=== PATIENT | male | born 1950 | race Two or more races ===

== ENCOUNTER 2019-10-28 15:45 | Inpatient (IN) | payer MEDICAID, MEDICARE ==
[~2019-10-28] VITALS: Ht 170.2 cm; Wt 92.1 kg
--- NOTE | 2019-10-28 16:00 | NUR ---
BIBA RA 860 " Right knee pain/swelling x1wk". On room air, breathing evenly and unlabored. connected to the monitor and pulse ox. kept comfortable, will continue to monitor accordingly.
--- NOTE | 2019-10-28 16:05 | NUR ---
[employer] service [facility] utilized for powder monkey [id number]
[2019-10-28] MEDS ORDERED: VANCOMYCIN 1 GM in IV D5W 250 ML IV ONE (17:00)
[2019-10-28] MEDS ORDERED: PIPERACILLIN /TAZOBACTAM 3.375 G in IV D5W 50 ML IV ONE (17:00)
[2019-10-28 17:20] LABS: BASOPHILS # (AUTO) 0.1 /CMM (0.0-0.2); BASOPHILS % (AUTO) 0.8 % (0.0-2.0); EOSINOPHILS % (AUTO) 2.7 % (0.0-6.0); HEMATOCRIT 45 % (39-51); HEMOGLOBIN 14.7 g/dL (13.5-17.5); LYMPHOCYTES # (AUTO) 1.8 /CMM (0.8-4.8); LYMPHOCYTES % (AUTO) 12.6 % (20.0-44.0); MEAN CORPUSCULAR HGB CONC 33 g/dl (31.0-36.0); MEAN CORPUSCULAR VOLUME 92 fL (80-96); MONOCYTES # (AUTO) 1.7 /CMM (0.1-1.30); MONOCYTES % (AUTO) 11.7 % (2.0-12.0); NEUTROPHILS # (AUTO) 10.5 /CMM (1.8-8.9); NEUTROPHILS % (AUTO) 72.2 % (43.0-81.0); PLATELET COUNT (AUTO) 337 /CMM (150-450); RED BLOOD CELL COUNT(AUTO) 4.85 MIL/uL (4.5-6.0); WHITE BLOOD COUNT (AUTO) 14.5 K/uL (4.3-11.0)
[2019-10-28 17:38] LABS: ALBUMIN 3.5 g/dL (3.4-5.0); BILIRUBIN,DIRECT 0.2 mg/dL (0.0-0.2); BILIRUBIN,TOTAL 0.7 mg/dL (0.2-1.0); CALCIUM, SERUM 11.3 mg/dL (8.5-10.1); CREATININE 1.2 mg/dL (0.6-1.3); POTASSIUM 3.5 mmol/L (3.5-5.1); TOTAL PROTEIN, SERUM 7.7 g/dL (6.4-8.2)
[2019-10-28 17:52] LABS: C-REACTIVE PROTEIN 19.7 mg/dL (0.0-0.9)
--- NOTE | 2019-10-28 18:00 | NUR ---
CARVING MACHINE OPERATOR/MED RECON UNABLE TO UPDATE HOME MEDICATION INFO AT THIS TIME. PATIENT UNABLE TO PROVIDE ANY INFO RE: MEDICATION. COMMUNICATED WITH PATIENT VIA PHOTOGRAPHIC MACHINE OPERATOR SERVICE [employer] FOR [facility], PHOTOGRAPHIC MACHINE OPERATOR RUFINA #[id number]. CALLED [facility] PER PATIENT REQUEST. SPOKE [facility] STATED "NO REGULAR PRESCRIPTION NOTED IN PATIENT PROFILE, AND THE LAST TIME WE DISPENSED WAS BACK IN FEBRUARY 2019 AND IT WAS L[facility] REGIMENT". PCP-DR. LAW [phone], OFFICE IS CLOSED ON WEEKENDS.
--- NOTE | 2019-10-28 19:31 | NUR ---
PT SEEN AND REASSESSED. NO MEDICAL COMPLAINTS AT THIS TIME. NO ACUTE DISTRESS NOTED.
--- NOTE | 2019-10-28 19:31 | NUR ---
REPORT RECEIVED FROM CHRISTINE BARKER
--- NOTE | 2019-10-28 19:42 | NUR ---
BED ASSIGNMENT 204-1
--- NOTE | 2019-10-28 19:58 | NUR ---
REPORT GIVEN TO CHRISTINE CHAVEZ
--- NOTE | 2019-10-28 20:06 | NUR ---
PT TRANSFERRED TO ROOM IN STABLE CONDITION
[2019-10-28 20:28] VITALS: BP 104/65
[2019-10-28 20:39] VITALS: BP 104/65
[2019-10-28] MEDS ORDERED: ENOXAPARIN SODIUM 80 MG/0.8 ML DISP.SYRIN SQ SCH (22:00)
[2019-10-28] MEDS: PANTOPRAZOLE 40 MG TABLET.DR PO SCH (22:35)
[2019-10-28 22:50] LABS: MAGNESIUM 1.8 mg/dL (1.8-2.4); THYROID STIMULATING HORMONE 1.611 uIU/mL (0.358-3.74)
[2019-10-28] MEDS: IPRATROPIUM NEB FS 0.5 MG/2.5 ML AMPUL.NEB NEB SCH (23:57)
[2019-10-28] MEDS: ALBUTEROL FS 2.5 MG/3 ML VIAL.NEB NEB SCH (23:57)
[2019-10-29] MEDS ORDERED: PIPERACILLIN /TAZOBACTAM 3.375 G VIAL IV ONE (00:38)
[2019-10-29] MEDS ORDERED: VANCOMYCIN 1 GM VIAL ONE (00:41)
[2019-10-29] MEDS ORDERED: PIPERACILLIN /TAZOBACTAM 3.375 G in IV D5W 50 ML IV ONE (01:00)
--- NOTE | 2019-10-29 04:41 | NUR ---
ENDING NOTES: ALERT AND ORIENTATED X4 DEAF AND MUTE, PAPER AND PEN GIVEN TO ALLOW HIM TO COMMUNICATE WITH THE STAFF AND THIS WORKED OUT EFFECTIVELY FOR COMMUNICATION PURPOSES. HE AMBULATES TO THE BATHROOM WITH MINIMAL ASSIST USING HIS OWN WALKER 2 - WHEEL WALKER FROM HOME. NO C/O OF PAIN THIS 12 HOURS UNLESS THE LEG WAS TOUCHED OR MOVED TOO FAST. RIGHT KNEE DEEP PINK IN COLOR.
[2019-10-29] MEDS ORDERED: VANCOMYCIN 1.5 GM in IV D5W 500 ML IV ONE (05:00)
[2019-10-29] MEDS: ACETAMINOPHEN ES 500 MG TABLET PO PRN ×2 (05:22→22:02)
[2019-10-29] MEDS ORDERED: FEE PK DOSING 1 MIN EA MC ONE (06:47)
--- NOTE | 2019-10-29 07:26 | NUR ---
MS RN OPENING NOTE PATIENT IN BED RESTING COMFORTABLY. PATIENT IN NO ACUTE DISTRESS. NO SOB NOTED. PATIENT BREATHING IS EVEN AND UNLABORED. PATIENT IS DEAF AND MUTE, ABLE TO COMMUNICATE WITH WRITTEN COMMUNICATION AND IS ALERT AND ORIENTED X4. PATIENT WALKER AT THE BEDSIDE. PATIENT SAFETY PRECAUTIONS IN PLACE. PATIENT BED IS LOCKED AND IN LOWEST POSITION. CALL LIGHT WITHIN REACH. WILL CONTINUE TO MONITOR.
[2019-10-29] MEDS: ALBUTEROL FS 2.5 MG/3 ML VIAL.NEB NEB SCH ×3 (08:09→23:07)
[2019-10-29] MEDS: PANTOPRAZOLE 40 MG TABLET.DR PO SCH (08:28)
[2019-10-29 08:43] VITALS: BP 108/71
[2019-10-29] MEDS ORDERED: ENOXAPARIN SODIUM 40 MG/0.4 ML DISP.SYRIN SQ SCH (09:50)
--- NOTE | 2019-10-29 09:58 | NUR ---
MS RN NOTE DR. LAW SEEN AND EVALUATED PATIENT. ORDER FOR LOVENOX TO BE CHANGED TO 40 MG PER MD, PHARMACY AWARE. PER DR. LAW OKAY TO ORDER SCDS FOR PATIENT. WILL CONTINUE TO MONITOR.
--- NOTE | 2019-10-29 10:16 | NUR ---
MS RN NOTE PER DR. LAW ORDER FOR D5NS RUNNING AT 80ML/HR AND ADMINISTER UNTIL CALCIUM LEVELS ARE WNL. MD ALSO ORDERED AND CHANGE FOR LOVENOX TO 100 MG AND SPOKE WITH BROWN FROM PHARMACY TO CONFIRM. PER MD CHANGE DOSING ONCE VENOUS DOCTOR ARRIVES AND CLEARS PATIENT FOR DVT AND DOSING TO BE LOVENOX 80MG ONCE CLEARED.
[2019-10-29] MEDS ORDERED: IV D5/ 0.9% NACL 1,000 ML IV PRN (10:30)
[2019-10-29] MEDS: ENOXAPARIN SODIUM 100 MG/ML DISP.SYRIN SQ SCH ×2 (11:04→22:02)
[2019-10-29 11:21] LABS: BASOPHILS # (AUTO) 0.1 /CMM (0.0-0.2); BASOPHILS % (AUTO) 0.5 % (0.0-2.0); EOSINOPHILS % (AUTO) 5.6 % (0.0-6.0); HEMATOCRIT 38 % (39-51); HEMOGLOBIN 12.6 g/dL (13.5-17.5); LYMPHOCYTES # (AUTO) 2.1 /CMM (0.8-4.8); LYMPHOCYTES % (AUTO) 16.5 % (20.0-44.0); MEAN CORPUSCULAR HGB CONC 33 g/dl (31.0-36.0); MEAN CORPUSCULAR VOLUME 91 fL (80-96); MONOCYTES # (AUTO) 1.8 /CMM (0.1-1.30); MONOCYTES % (AUTO) 14.3 % (2.0-12.0); NEUTROPHILS # (AUTO) 8.1 /CMM (1.8-8.9); NEUTROPHILS % (AUTO) 63.1 % (43.0-81.0); PLATELET COUNT (AUTO) 337 /CMM (150-450); RED BLOOD CELL COUNT(AUTO) 4.15 MIL/uL (4.5-6.0); WHITE BLOOD COUNT (AUTO) 12.8 K/uL (4.3-11.0)
[2019-10-29 11:34] LABS: CREATININE 1.3 mg/dL (0.6-1.3)
[2019-10-29 11:36] LABS: IRON, SERUM 25 ug/dl (50-175); TOTAL IRON BINDING CAPACITY 253 ug/dl (250-450)
[2019-10-29 12:10] LABS: POTASSIUM 2.8 mmol/L (3.5-5.1)
[2019-10-29] MEDS: PIPERACILLIN /TAZOBACTAM 3.375 G in IV D5W 50 ML IV SCH ×2 (12:27→17:13)
[2019-10-29] MEDS: IPRATROPIUM NEB FS 0.5 MG/2.5 ML AMPUL.NEB NEB SCH ×2 (12:34→23:07)
--- NOTE | 2019-10-29 12:50 | NUR ---
MS RN NOTE INFORMED DR. LAW OF POTASSIUM 2.8. PER MD ORDER FOR 40 MEQS POTASSIUM BY TABLETS, THEN REPEAT AND GIVE SAME DOSE OF 40 MEQS POTASSIUM IN TWO HOURS AFTER FIRST DOSE. DR. LAW ALSO NOTED OF MAGNESIUM 1.8 YESTERDAY. PER MD ORDER FOR 2 GMS MAGNESIUM GIVEN TODAY AND 2 GMS MAGNESIUM TO BE GIVEN TOMORROW.
[2019-10-29] MEDS ORDERED: POTASSIUM CHLORIDE 20 MEQ TAB.PRT.SR PO ONE ×2 (13:00→15:00)
[2019-10-29] MEDS ORDERED: Magnesium 1GM/D5W 100ML PREMIX PIGGYBACK IV ONE (13:00)
[2019-10-29] MEDS: Magnesium 1GM/D5W 100ML PREMIX 100 ML IV SCH ×2 (13:43→15:16)
[2019-10-29 16:04] VITALS: BP 112/68
--- NOTE | 2019-10-29 16:07 | NUR ---
MS RN NOTE INFORMED AND MADE AWARE TO DR. LAW THAT CALCIUM TODAY IS 9.0 AND IS WITHIN NORMAL RANGE OF THE HOSPITAL. PER MD ORDER TO STOP IV FLUIDS. ALSO MADE AWARE TO MD THAT DR. ZAYAS MEDICAL OFFICES CLOSED. PER DR. LAW TRY TO CALL AGAIN AND LEAVE MESSAGE IF NEEDED. DR. LAW STATED HE LEFT MESSAGE FOR CONSULT WELL. WHEN CALLING MEDICAL OFFICES OF DR. ZAYAS, WAS TRANSFERRED TO THE TEST DEVELOPER DOCTOR. I SPOKE WITH DR. PALM AND GAVE REPORT FOR CONSULT. PER DR. PALM WILL COME SEE PATIENT TOMORROW MORNING.
--- NOTE | 2019-10-29 18:25 | NUR ---
MS RN CLOSING NOTE PATIENT IN BED RESTING COMFORTABLY. PATIENT IN NO ACUTE DISTRESS. NO SOB NOTED. PATIENT BREATHING IS EVEN AND UNLABORED. PATIENT IS DEAF AND MUTE, ABLE TO COMMUNICATE WITH WRITTEN COMMUNICATION AND IS ALERT AND ORIENTED X4. PATIENT WALKER AT THE BEDSIDE. PATIENT KEPT CLEAN, DRY, AND COMFORTABLE THROUGHOUT SHIFT. PATIENT SAFETY PRECAUTIONS IN PLACE. PATIENT BED IS LOCKED AND IN LOWEST POSITION. CALL LIGHT WITHIN REACH. WILL ENDORSE CARE TO PM SHIFT FOR SUMIT.
--- NOTE | 2019-10-29 19:50 | NUR ---
MS RN OPENING NOTES RECEIVED PATIENT FROM MORNING SHIFT, ALERT AND ORIENTED X 3. COMMUNICATES THROUGH HAND LANGUAGE AND WRITTEN MESSAGES; ABLE TO FOLLOW DIRECTIONS. BREATHING REGULAR AND UNLABORED ON ROOM AIR. LEFT AC G18 IV LINE INTACT AND PATENT, FLUSHING WELL WITH NO BLEEDING OR S/S OF INFILTRATION NOTED. DENIES SUICIDAL IDEATION OR PAIN/DISCOMFORT AT THIS TIME. BED LOW AND LOCKED ON SEMI FOWLERS POSITION. CALL LIGHT IN REACH. WILL CONTINUE TO MONITOR.
[2019-10-29 20:00] VITALS: BP 99/63
[2019-10-29 20:06] VITALS: BP 99/63
[2019-10-29] MEDS: VANCOMYCIN 1.25 GM in IV D5W 250 ML IV SCH (22:23)
--- NOTE | 2019-10-29 23:45 | NUR ---
MS RN NOTES IV LINE LEAKING, REINSERTED ON LEFT FOREARM G22 WITH GOOD BLOOD BACK FLOW FLUSHING WELL.
[2019-10-30] MEDS: PIPERACILLIN /TAZOBACTAM 3.375 G in IV D5W 50 ML IV SCH ×5 (00:32→23:42)
[2019-10-30] MEDS: ACETAMINOPHEN ES 500 MG TABLET PO PRN (06:00)
--- NOTE | 2019-10-30 06:35 | NUR ---
MS RN CLOSING NOTES PATIENT IN BED, ALERT AND ORIENTED X 3. AFEBRILE WITH NO S/S OF DISTRESS OBSERVED. LEFT FOREARM G22 IV LINE PATENT AND FLUSHING WELL. COMPLAINED OF 3/10 RIGHT KNEE TO RIGHT ANKLE PAIN, TYLENOL 500MG GIVEN BY MOUTH. NON-PHARMACOLOGICAL INTERVENTIONS PROVIDED. KILN CAR UNLOADER MARGIE NOTIFIED. BED LOW AND LOCKED ON SEMI FOWLERS POSITION. CALL LIGHT IN REACH. WILL ENDORSE TO MORNING SHIFT FOR SUMIT.
--- NOTE | 2019-10-30 07:34 | NUR ---
MS RN NOTES PATIENT IN BED RESTING NO SOB OR ACUTE DISTRESS NOTED. PATIENT ALERT, ORIENTED X 3. BED IN LOW LOCKED POSITION. SAFETY MEASURES IN PLACE. CALL LIGHT WITHIN REACH. WILL CONTINUE TO MONITOR.
[2019-10-30 07:39] LABS: BASOPHILS # (AUTO) 0.1 /CMM (0.0-0.2); EOSINOPHILS % (AUTO) 6.3 % (0.0-6.0); HEMATOCRIT 38 % (39-51); HEMOGLOBIN 12.8 g/dL (13.5-17.5); LYMPHOCYTES # (AUTO) 2.1 /CMM (0.8-4.8); LYMPHOCYTES % (AUTO) 18.1 % (20.0-44.0); MEAN CORPUSCULAR HGB CONC 34 g/dl (31.0-36.0); MEAN CORPUSCULAR VOLUME 91 fL (80-96); MONOCYTES # (AUTO) 1.3 /CMM (0.1-1.30); MONOCYTES % (AUTO) 11.2 % (2.0-12.0); NEUTROPHILS # (AUTO) 7.2 /CMM (1.8-8.9); NEUTROPHILS % (AUTO) 63.4 % (43.0-81.0); PLATELET COUNT (AUTO) 318 /CMM (150-450); RED BLOOD CELL COUNT(AUTO) 4.16 MIL/uL (4.5-6.0); WHITE BLOOD COUNT (AUTO) 11.3 K/uL (4.3-11.0)
[2019-10-30 07:58] LABS: ALANINE AMINOTRANSFERASE 26 U/L (12-78); ALBUMIN 2.9 g/dL (3.4-5.0); ALKALINE PHOSPHATASE 45 U/L (46-116); ASPARTATE AMINOTRANSFERASE 20 U/L (15-37); BILIRUBIN,TOTAL 0.5 mg/dL (0.2-1.0); CALCIUM, SERUM 8.4 mg/dL (8.5-10.1); CARBON DIOXIDE 27 mmol/L (21-32); CHLORIDE 102 mmol/L (98-107); CREATININE 1.4 mg/dL (0.6-1.3); GLUCOSE 104 mg/dL (74-106); POTASSIUM 3.3 mmol/L (3.5-5.1); SODIUM SERUM 138 mmol/L (136-145); TOTAL PROTEIN, SERUM 6.6 g/dL (6.4-8.2); UREA NITROGEN, BLOOD 18 mg/dL (7-18)
[2019-10-30] MEDS: IPRATROPIUM NEB FS 0.5 MG/2.5 ML AMPUL.NEB NEB SCH ×3 (08:23→23:31)
[2019-10-30] MEDS: ALBUTEROL FS 2.5 MG/3 ML VIAL.NEB NEB SCH ×3 (08:23→23:31)
[2019-10-30 08:42] VITALS: BP 128/79
[2019-10-30] MEDS ORDERED: ENOXAPARIN SODIUM 40 MG/0.4 ML DISP.SYRIN SQ SCH (09:00)
[2019-10-30] MEDS: PANTOPRAZOLE 40 MG TABLET.DR PO SCH (09:49)
--- NOTE | 2019-10-30 09:52 | NUR ---
MS RN NOTES PATIENT WAS SEEN BY DR. LONG, CONSULTED ORTHO. SURGEON. INFORMED DR. OH THAT PATIENT PAIN MEDICATION IS NOT EFFECTIVE, NO NEW ORDERS GIVEN. ALSO ORDERS GIVEN TO CHANGE LOVENOX TO 80MG. ALL ORDERS NOTED AND CARRIED OUT.
[2019-10-30] MEDS ORDERED: ENOXAPARIN SODIUM 100 MG/ML DISP.SYRIN SQ SCH (10:30)
[2019-10-30] MEDS ORDERED: ENOXAPARIN SODIUM 80 MG/0.8 ML DISP.SYRIN SQ SCH (10:30)
--- NOTE | 2019-10-30 11:23 | NUR ---
Social Service consult requested by MD pt lives alone and possible lack of resources. Per MD notes, pt is a 69-year-old male, patient is self-referred. Patient has been having right knee pain and swelling for 1 week. No history of trauma. No fever or chills. No cough or shortness of breath. No vomiting or diarrhea. PASCUAL and CHRISTINE Parrish met with the pt bedside. Pt is deaf. BUS WASHER communicated with the pt through [employer] language interpretation services, clay puddler ID#[id number]. BUS WASHER introduced self, and purpose of the visit. Pt is alert and oriented x 3. Pt appears confused at times and not able to recollect his address or personal information. Per pt, he resides at [facility] located at [address], however [facility] is located at [address]. Pt states, he left his pet with is neighbor Av Pruett but does not have Art's contact number. Pt had a few [facility] navigator business cards. BUS WASHER attempted to call the numbers on the card, however some are not working, SW is not able to leave any contact information. BUS WASHER left a voicemail at [facility] requesting a call back. Pt reports, he has been residing there since January 2007 but is not sure. BUS WASHER to continue to f/u in finding contact information for the pt.
[2019-10-30] MEDS ORDERED: POTASSIUM CHLORIDE 20 MEQ TAB.PRT.SR PO SCH (12:00)
--- NOTE | 2019-10-30 12:00 | NUR ---
MS RN NOTES MRI QUESTIONER COMPLETED WITH STUDY MANAGER [employer]IA [employer]. FORM SIGNED BY PATIENT ALL QUESTIONS ANSWERED.
[2019-10-30] MEDS ORDERED: Magnesium 1GM/D5W 100ML PREMIX PIGGYBACK IV ONE (13:00)
[2019-10-30] MEDS: SOD FERRIC GLUC 125 MG in IV NS 0.9% 100 ML IV SCH (14:36)
[2019-10-30] MEDS: Magnesium 1GM/D5W 100ML PREMIX 100 ML IV SCH ×2 (15:00→16:09)
[2019-10-30 16:48] VITALS: BP 119/74
--- NOTE | 2019-10-30 17:30 | NUR ---
MS RN NOTES CALL RECEIVED FROM CASE MANAGEMENT REQUESTING COVID TEST FOR PATIENT FOR PLACEMENT PURPOSES. NOTED AND CARRIED OUT.
[2019-10-30] MEDS: VANCOMYCIN 1.25 GM in IV D5W 250 ML IV SCH (17:39)
--- NOTE | 2019-10-30 18:54 | NUR ---
MS RN NOTES PATIENT IN BED RESTING NO SOB OR ACUTE DISTRESS NOTED. ALL DUE MEDICATIONS ADMINISTERED. ALL NEEDS MET. NO ACUTE CHANGES NOTED DURING SHIFT. WILL ENDORSE CARE TO PM SHIFT.
--- NOTE | 2019-10-30 19:35 | NUR ---
MS RN OPENING NOTES RECEIVED PATIENT FROM MORNING SHIFT, ALERT AND ORIENTED X 3. COMMUNICATES THROUGH HAND LANGUAGE AND WRITTEN MESSAGES; ABLE TO FOLLOW DIRECTIONS. BREATHING REGULAR AND UNLABORED ON ROOM AIR. LEFT FOREARM G22 IV LINE INTACT AND PATENT, FLUSHING WELL WITH NO BLEEDING OR S/S OF INFILTRATION NOTED. DENIES SUICIDAL IDEATION OR PAIN/DISCOMFORT AT THIS TIME. BED LOW AND LOCKED ON SEMI FOWLERS POSITION. CALL LIGHT IN REACH. WILL CONTINUE TO MONITOR.
[2019-10-30 20:00] VITALS: BP_SYST 130; BP_SYST 138; BP_DIAS 91; BP_DIAS 97
--- NOTE | 2019-10-30 22:45 | NUR ---
MS RN NOTES PICKED-UP FOR MRI VIA WHEELCHAIR.
[2019-10-31] MEDS: PIPERACILLIN /TAZOBACTAM 3.375 G in IV D5W 50 ML IV SCH ×4 (05:20→23:51)
--- NOTE | 2019-10-31 06:35 | NUR ---
MS RN CLOSING NOTES PATIENT IN BED, ALERT AND ORIENTED X 3. AFEBRILE WITH NO S/S OF DISTRESS OBSERVED. LEFT FOREARM G22 IV LINE PATENT AND FLUSHING WELL. DENIES ANY PAIN/DISCOMFORT AT THIS TIME. BED LOW AND LOCKED ON SEMI FOWLERS POSITION. CALL LIGHT IN REACH. WILL ENDORSE TO MORNING SHIFT FOR SUMIT.
[2019-10-31 07:00] LABS: BASOPHILS # (AUTO) 0.1 /CMM (0.0-0.2); BASOPHILS % (AUTO) 0.9 % (0.0-2.0); EOSINOPHILS % (AUTO) 6.2 % (0.0-6.0); HEMATOCRIT 42 % (39-51); LYMPHOCYTES # (AUTO) 1.9 /CMM (0.8-4.8); LYMPHOCYTES % (AUTO) 16.6 % (20.0-44.0); MEAN CORPUSCULAR HGB CONC 34 g/dl (31.0-36.0); MEAN CORPUSCULAR VOLUME 91 fL (80-96); MONOCYTES % (AUTO) 8.9 % (2.0-12.0); NEUTROPHILS # (AUTO) 7.9 /CMM (1.8-8.9); NEUTROPHILS % (AUTO) 67.4 % (43.0-81.0); PLATELET COUNT (AUTO) 383 /CMM (150-450); RED BLOOD CELL COUNT(AUTO) 4.56 MIL/uL (4.5-6.0); WHITE BLOOD COUNT (AUTO) 11.7 K/uL (4.3-11.0)
[2019-10-31 07:16] LABS: APPEARANCE,URINE CLEAR (CLEAR); BILIRUBIN,URINE NEGATIVE (NEGATIVE); BLOOD, URINE NEGATIVE Ery/uL (NEGATIVE); KETONES,URINE NEGATIVE (NEGATIVE); LEUKOCYTE ESTERASE ,URINE NEGATIVE (NEGATIVE); NITRITE, URINE NEGATIVE (NEGATIVE); PROTEIN,URINE NEGATIVE (NEGATIVE); UGLUCOSE NEGATIVE (NEGATIVE); UROBILINOGEN,URINE 0.2 EU/dL (0.2)
[2019-10-31 07:17] LABS: CREATININE, URINE 33.7 MG/DL (30.0-125.0); URINE TOTAL PROTEIN 8.4 mg/dL (0-11.9)
[2019-10-31 07:20] LABS: COLOR,URINE STRAW (YELLOW)
[2019-10-31 07:32] LABS: ALBUMIN 3.3 g/dL (3.4-5.0); BILIRUBIN,TOTAL 0.4 mg/dL (0.2-1.0); CALCIUM, SERUM 9.1 mg/dL (8.5-10.1); CREATININE 1.3 mg/dL (0.6-1.3); MAGNESIUM 2.4 mg/dL (1.8-2.4); PHOSPHORUS 2.6 mg/dL (2.5-4.9); POTASSIUM 3.9 mmol/L (3.5-5.1); TOTAL PROTEIN, SERUM 7.6 g/dL (6.4-8.2)
[2019-10-31 08:00] VITALS: BP 133/88
[2019-10-31] MEDS: ALBUTEROL FS 2.5 MG/3 ML VIAL.NEB NEB SCH ×2 (08:15→14:56)
[2019-10-31] MEDS: IPRATROPIUM NEB FS 0.5 MG/2.5 ML AMPUL.NEB NEB SCH ×2 (08:15→14:56)
[2019-10-31] MEDS: PANTOPRAZOLE 40 MG TABLET.DR PO SCH (09:28)
[2019-10-31] MEDS: ENOXAPARIN SODIUM 40 MG/0.4 ML DISP.SYRIN SQ SCH (09:29)
[2019-10-31] MEDS: VANCOMYCIN 1.25 GM in IV D5W 250 ML IV SCH (11:47)
[2019-10-31 13:08] LABS: EOSINOPHIL,URINE None Seen
[2019-10-31] MEDS: SOD FERRIC GLUC 125 MG in IV NS 0.9% 100 ML IV SCH (15:40)
[2019-10-31] MEDS ORDERED: LORATADINE 10 MG TABLET PO ONE (17:00)
--- NOTE | 2019-10-31 18:36 | NUR ---
MS RN NOTES PATIENT IN BED RESTING NO SOB OR ACUTE DISTRESS NOTED. NO ACUTE CHANGES NOTED. ALL DUE MEDICATIONS ADMINISTERED. ALL NEEDS MET. WILL ENDORSE CARE TO PM SHIFT.
--- NOTE | 2019-10-31 19:05 | NUR ---
RN OPENING NOTES Received patient asleep on bed. Communication through writing. On RA, no SOB/respiratory distress noted at this time. Patient denies any pain at this time. Kept on bed clean, dry and comfortable. On fall and aspiration precautions. Will continue to monitor accordingly.
[2019-10-31 20:00] VITALS: BP 103/77
[2019-10-31] MEDS: ACETAMINOPHEN ES 500 MG TABLET PO PRN (21:30)
[2019-10-31 22:50] VITALS: BP 103/77
[2019-11-01] MEDS: IPRATROPIUM NEB FS 0.5 MG/2.5 ML AMPUL.NEB NEB SCH ×4 (00:22→23:20)
[2019-11-01] MEDS: ALBUTEROL FS 2.5 MG/3 ML VIAL.NEB NEB SCH ×4 (00:22→23:20)
[2019-11-01] MEDS: VANCOMYCIN 1.25 GM in IV D5W 250 ML IV SCH ×2 (04:08→22:48)
[2019-11-01] MEDS: PIPERACILLIN /TAZOBACTAM 3.375 G in IV D5W 50 ML IV SCH ×4 (05:03→23:41)
--- NOTE | 2019-11-01 06:54 | NUR ---
RN CLOSING NOTES Patient asleep, easily awaken. No new complaints made. All nursing needs attended. Due meds given as ordered. Kept on bed clean, dry and comfortable. On fall and aspiration precautions. Endorsed.
[2019-11-01 07:44] LABS: CALCIUM, SERUM 8.8 mg/dL (8.5-10.1); CREATININE 1.2 mg/dL (0.6-1.3); POTASSIUM 4.1 mmol/L (3.5-5.1)
[2019-11-01 08:00] VITALS: BP 131/81
--- NOTE | 2019-11-01 08:00 | NUR ---
MS RN OPENING NOTES Received Patient resting in bed. A/O x 3. VS stable with no acute distress. Breathing even and unlabored on room air with no respiratory distress. Denies pain. No signs and symptoms of pain. 20g PIV on LFA clean, intact, patent and flushing well. Safety precautions in place. Bed locked and set to lowest position with side rails x 2 up. All needs rendered at this time. Call light within reach. Will continue to monitor.
[2019-11-01] MEDS: PANTOPRAZOLE 40 MG TABLET.DR PO SCH (08:54)
[2019-11-01] MEDS: ENOXAPARIN SODIUM 40 MG/0.4 ML DISP.SYRIN SQ SCH (08:55)
--- NOTE | 2019-11-01 09:30 | NUR ---
MS RN NOTES Per Leny BAIG, verbally ordered CBC, CMP, and ESR for 11/02/19 AM. Orders read back, noted and carried out. Patient in stable condition. Will continue to monitor.
[2019-11-01] MEDS ORDERED: LIDOCAINE 2% 20 ML MDV IJ STA (11:09)
--- NOTE | 2019-11-01 11:40 | NUR ---
MS RN NOTES Obtained consent for "Left Knee Aspiration" at this time. Explained risks and benefits of procedure. Patient agreed. Consent placed in chart. Patient in stable condition. Will continue to monitor.
--- NOTE | 2019-11-01 11:50 | NUR ---
MS RN NOTES Per Sundar BAIG, ordered Anaerobic Gram Stain, Culture Sensitivity, Uric Acid Crystals, and Cell Count for aspirate fluid from Right Knee. Reviewed orders with Yomaira REHMAN. Orders noted and carried out. Patient in stable condition. Will continue to monitor.
[2019-11-01 12:06] LABS: *SPE A/G RATIO 0.9 (0.7-1.7); *SPE ALBUMIN 3.1 g/dL (2.9-4.4); *SPE ALPHA-1-GLOBULIN 0.4 g/dL (0.0-0.4); *SPE ALPHA-2-GLOBULIN 1.1 g/dL (0.4-1.0); *SPE BETA GLOBULIN 1.4 g/dL (0.7-1.3); *SPE GLOBULIN, TOTAL 3.6 g/dL (2.2-3.9); *SPE M-SPIKE Not Observed g/dL (Not Observed); *SPEGAMMA GLOBULIN 0.7 g/dL (0.4-1.8)
[2019-11-01] MEDS: SOD FERRIC GLUC 125 MG in IV NS 0.9% 100 ML IV SCH (14:11)
--- NOTE | 2019-11-01 19:19 | NUR ---
MS RN CLOSING NOTES Patient resting in bed. A/O x 3. VS stable with no acute distress. Breathing even and unlabored on room air with no respiratory distress. Denies pain. No signs and symptoms of pain. 20g PIV on LFA clean, intact, patent and flushing well. Safety precautions in place. Bed locked and set to lowest position with side rails x 2 up. All needs rendered at this time. Call light within reach. Will endorse plan of care to oncoming shift.
--- NOTE | 2019-11-01 19:25 | NUR ---
RN OPENING NOTES Received patient awake, resting on bed. No complaints made at this time. Patient able to manage self independently. Call light within easy reach. Communication through writing provided, pt easily understood and be understand by the HCPs. Will continue to monitor accordingly.
[2019-11-01] MEDS: ACETAMINOPHEN ES 500 MG TABLET PO PRN (19:56)
[2019-11-01 20:00] VITALS: BP 130/85
[2019-11-01 20:50] VITALS: BP 130/85
--- NOTE | 2019-11-02 01:45 | NUR ---
RN NOTES 2875 - Received a call from labs that specimen of R knee aspiration needed to be logged in before it can be run. Attended need accordingly. 0130 - Changed lab order to BODY FLUID Analysis per laboratory. Awaiting for result at this time.
[2019-11-02] MEDS: PIPERACILLIN /TAZOBACTAM 3.375 G in IV D5W 50 ML IV SCH ×4 (06:11→23:07)
--- NOTE | 2019-11-02 06:26 | NUR ---
RN CLOSING NOTES Patient asleep, easily awaken. Deaf/mute, communication through writing, no difficulty with communication noted. All nursing needs attended. Due meds given as ordered. Pt noted ambulatory with FWW and self-care provided independently. No new unusualities noted. Still with swelling on R knee, S/P synovial fluid aspiration, wrapped with bandage, intact, clean and dry. Kept on bed clean, dry and comfortable. On fall precautions. Call light within easy reach. Endorsed.
[2019-11-02 06:58] LABS: ALBUMIN 3.2 g/dL (3.4-5.0); BILIRUBIN,TOTAL 0.3 mg/dL (0.2-1.0); CREATININE 1.2 mg/dL (0.6-1.3); TOTAL PROTEIN, SERUM 7.1 g/dL (6.4-8.2)
[2019-11-02 07:01] LABS: BASOPHILS # (AUTO) 0.1 /CMM (0.0-0.2); BASOPHILS % (AUTO) 1.1 % (0.0-2.0); EOSINOPHILS % (AUTO) 6.3 % (0.0-6.0); HEMATOCRIT 41 % (39-51); HEMOGLOBIN 13.4 g/dL (13.5-17.5); LYMPHOCYTES % (AUTO) 15.9 % (20.0-44.0); MEAN CORPUSCULAR HGB CONC 33 g/dl (31.0-36.0); MEAN CORPUSCULAR VOLUME 92 fL (80-96); MONOCYTES # (AUTO) 1.2 /CMM (0.1-1.30); MONOCYTES % (AUTO) 9.7 % (2.0-12.0); NEUTROPHILS # (AUTO) 8.4 /CMM (1.8-8.9); PLATELET COUNT (AUTO) 390 /CMM (150-450); RED BLOOD CELL COUNT(AUTO) 4.42 MIL/uL (4.5-6.0); WHITE BLOOD COUNT (AUTO) 12.6 K/uL (4.3-11.0)
--- NOTE | 2019-11-02 07:15 | NUR ---
MS RN NOTES RECEIVED PATIENT IN BED, ALERT AND ORIENTED X4. PATIENT NON-VERBAL. ABLE TO COMMUNICATE AND MAKE NEEDS KNOWN THROUGH WRITTEN COMMUNICATION AND BODY GESTURES. RT KNEE WITH SWELLING NOTED, ELEVATED. LEFT FA #20 SL INTACT AND PATENT. BED IN LOWEST POSITION, LOCKED. BED ALARM ON. CALL LIGHT WITHIN REACH.
[2019-11-02] MEDS: ALBUTEROL FS 2.5 MG/3 ML VIAL.NEB NEB SCH ×3 (07:19→23:14)
[2019-11-02] MEDS: IPRATROPIUM NEB FS 0.5 MG/2.5 ML AMPUL.NEB NEB SCH ×3 (07:19→23:14)
[2019-11-02 07:47] VITALS: BP 124/82
[2019-11-02] MEDS: ACETAMINOPHEN ES 500 MG TABLET PO PRN (07:47)
[2019-11-02] MEDS: PANTOPRAZOLE 40 MG TABLET.DR PO SCH (08:02)
[2019-11-02] MEDS: ENOXAPARIN SODIUM 40 MG/0.4 ML DISP.SYRIN SQ SCH (08:03)
--- NOTE | 2019-11-02 08:21 | NUR ---
MS RN NOTES PATIENT SEEN AND EXAMINED BY DR. OH.
--- NOTE | 2019-11-02 09:31 | NUR ---
Social Service consult was requested by due to unresolving the problems that were mentioned on the consult such as housing, money and home care issues, may need SNF. JUANITO followed up with case management during the morning meeting and was informed that the pt will be discharged to [facility] today.
[2019-11-02] MEDS: SOD FERRIC GLUC 125 MG in IV NS 0.9% 100 ML IV SCH (14:40)
[2019-11-02] MEDS: MENTHOL/CETYLPYRD (CEPACOL) 1 LOZ LOZENGE PO PRN ×3 (15:00→23:56)
[2019-11-02 16:00] VITALS: BP 112/67
[2019-11-02] MEDS: VANCOMYCIN 1.25 GM in IV D5W 250 ML IV SCH (17:50)
--- NOTE | 2019-11-02 19:15 | NUR ---
RN medsurg opening notes Received Pt from morning nurse. Pt is sitting in a chair watching TV. Pt is alert and orientedX4. Respiration is normal in room air. No SOB. No S/S of distress noted. Pt is able to communicate through writing. Papers and pen are provided. LFA # 20 is clean, intact and patent. Safety precautions is maintained. Bed at low position, brakes locked, side rails upx2 and call light is within reach. Will continue to monitor.
[2019-11-02 19:33] VITALS: BP 113/68
--- NOTE | 2019-11-02 19:39 | NUR ---
MS RN NOTES PATIENT RESTING COMFORTABLY IN BED. DENIES ANY C/O PAIN NOR DISCOMFORT AT THIS TIME. LEFT FA #20 SL INTACT AND PATENT. PATIENT AMBULATING IN ROOM WITH FWW WITH STEADY GAIT DURING THE SHIFT. BED IN LOWEST POSITION, LOCKED. BED ALARM ON. CALL LIGHT WITHIN REACH. IN NO APPARENT DISTRESS.
[2019-11-02 20:00] VITALS: BP 113/68
[2019-11-03] MEDS: MENTHOL/CETYLPYRD (CEPACOL) 1 LOZ LOZENGE PO PRN ×3 (04:45→20:20)
[2019-11-03] MEDS: PIPERACILLIN /TAZOBACTAM 3.375 G in IV D5W 50 ML IV SCH ×4 (05:01→23:14)
[2019-11-03] MEDS: ALBUTEROL FS 2.5 MG/3 ML VIAL.NEB NEB SCH ×3 (06:58→23:30)
[2019-11-03] MEDS: IPRATROPIUM NEB FS 0.5 MG/2.5 ML AMPUL.NEB NEB SCH ×3 (06:58→23:30)
--- NOTE | 2019-11-03 07:00 | NUR ---
CHRISTINE medsurg closing notes Pt is sitting in a bed comfortably. Pt is alert and orientedX4. Respiration is normal in room air. No SOB. No S/S of distress noted. VS is stable. Afebrile. Routine meds were given as ordered. LFA # 20 is clean, intact and patent. Kept Pt clean, dry and comfortable. All needs met and attended. Safety precautions is maintained. Bed at low position, brakes locked, side rails upx2 and call light is within reach. Will continue to monitor. Addendum: 11/03/19 at 0743 by JANAK CURIEL RN Will endorse to morning nurse for SUMIT.
[2019-11-03 07:17] LABS: BASOPHILS # (AUTO) 0.2 /CMM (0.0-0.2); BASOPHILS % (AUTO) 1.4 % (0.0-2.0); EOSINOPHILS % (AUTO) 6.1 % (0.0-6.0); HEMATOCRIT 40 % (39-51); HEMOGLOBIN 13.1 g/dL (13.5-17.5); LYMPHOCYTES # (AUTO) 2.2 /CMM (0.8-4.8); LYMPHOCYTES % (AUTO) 16.3 % (20.0-44.0); MEAN CORPUSCULAR HGB CONC 33 g/dl (31.0-36.0); MEAN CORPUSCULAR VOLUME 92 fL (80-96); MONOCYTES # (AUTO) 1.6 /CMM (0.1-1.30); MONOCYTES % (AUTO) 11.6 % (2.0-12.0); NEUTROPHILS # (AUTO) 8.8 /CMM (1.8-8.9); NEUTROPHILS % (AUTO) 64.6 % (43.0-81.0); PLATELET COUNT (AUTO) 416 /CMM (150-450); RED BLOOD CELL COUNT(AUTO) 4.34 MIL/uL (4.5-6.0); WHITE BLOOD COUNT (AUTO) 13.6 K/uL (4.3-11.0)
--- NOTE | 2019-11-03 07:20 | NUR ---
RN MS OPENING NOTES: Received patient sitting on bed; awake and alert. Patient did not complain of pain or discomfort. Patient has no SOB. Breathing unlabored and equal bilaterally. Skin is intact. Patient manages self independently. Patient communicates through writing and sign language. Patient bed is in lowest position, side rails up, and call light near. Educated patient on the use of call light. Patient return demonstrated the use of call light. Will continue to monitor patient accordingly.
[2019-11-03 07:32] LABS: C-REACTIVE PROTEIN 3.3 mg/dL (0.0-0.9)
[2019-11-03 07:35] LABS: ALBUMIN 3.1 g/dL (3.4-5.0); BILIRUBIN,TOTAL 0.4 mg/dL (0.2-1.0); CREATININE 1.3 mg/dL (0.6-1.3); POTASSIUM 4.1 mmol/L (3.5-5.1); TOTAL PROTEIN, SERUM 7.1 g/dL (6.4-8.2)
[2019-11-03 08:00] VITALS: BP 104/79
[2019-11-03] MEDS: PANTOPRAZOLE 40 MG TABLET.DR PO SCH (08:44)
[2019-11-03] MEDS: ENOXAPARIN SODIUM 40 MG/0.4 ML DISP.SYRIN SQ SCH (08:46)
[2019-11-03] MEDS: CHLORHEXIDINE GLUCONATE 15 ML UDC MM SCH ×2 (10:18→16:36)
--- NOTE | 2019-11-03 10:49 | NUR ---
MS RN NOTE PATIENT SEEN BY ST
[2019-11-03] MEDS: VANCOMYCIN 1.25 GM in IV D5W 250 ML IV SCH (11:07)
[2019-11-03] MEDS: ACETAMINOPHEN ES 500 MG TABLET PO PRN (11:24)
[2019-11-03] MEDS: SOD FERRIC GLUC 125 MG in IV NS 0.9% 100 ML IV SCH (14:47)
--- NOTE | 2019-11-03 15:00 | NUR ---
MS RN NOTE RECEIVED A CALL FROM HERRERA RESIDENT COORDINATOR FROM [facility] AND INQUIRED REGARDING PATIENT'S DISCHARGE. RELAYED AND INFORMED CM.
[2019-11-03 16:00] VITALS: BP 115/86
--- NOTE | 2019-11-03 18:43 | NUR ---
RN MS CLOSING NOTES: Patient resting comfortably in bed. watching tv. Denies any complain of pain or discomfort. No s/s of respiratory distress. Patient communicates through writing and sign language. Patient bed is in lowest position, side rails up, and call light near. Educated patient on the use of call light. In no apparent distress.
--- NOTE | 2019-11-03 19:00 | NUR ---
RN medsur opening notes Pt is sitting in a chair watching TV. Pt is alert and orientedX4. Respiration is normal in room air. No SOB. No S/S of distress noted. Pt is able to communicate through writing. Papers and pen are provided. LFA # 20 is clean, intact and patent. R hand# 20 is clean, intact and SL. Per am nurse Pt passed swallow eval today. Safety precautions is maintained. Bed at low position, brakes locked, side rails upx2 and call light is within reach. Will continue to monitor.
[2019-11-03 20:00] VITALS: BP 129/88
[2019-11-04] MEDS: MENTHOL/CETYLPYRD (CEPACOL) 1 LOZ LOZENGE PO PRN ×2 (03:49→08:22)
[2019-11-04] MEDS: PIPERACILLIN /TAZOBACTAM 3.375 G in IV D5W 50 ML IV SCH ×3 (05:17→17:23)
[2019-11-04 06:27] LABS: IRON, SERUM 108 ug/dl (50-175)
[2019-11-04 06:34] LABS: ALANINE AMINOTRANSFERASE 36 U/L (12-78); ALBUMIN 3.5 g/dL (3.4-5.0); ALKALINE PHOSPHATASE 51 U/L (46-116); ASPARTATE AMINOTRANSFERASE 21 U/L (15-37); BILIRUBIN,TOTAL 0.3 mg/dL (0.2-1.0); CALCIUM, SERUM 9.4 mg/dL (8.5-10.1); CARBON DIOXIDE 27 mmol/L (21-32); CHLORIDE 102 mmol/L (98-107); CREATININE 1.4 mg/dL (0.6-1.3); GLUCOSE 99 mg/dL (74-106); POTASSIUM 4.3 mmol/L (3.5-5.1); SODIUM SERUM 138 mmol/L (136-145); TOTAL PROTEIN, SERUM 7.7 g/dL (6.4-8.2); UREA NITROGEN, BLOOD 22 mg/dL (7-18)
--- NOTE | 2019-11-04 06:40 | NUR ---
RN medsurg closing notes Pt is resting in bed comfortably. Pt is alert and orientedX4. Respiration is normal in room air. No SOB. No S/S of distress noted. VS is stable. Afebrile. Routine meds were given as ordered. LFA # 20 is clean, intact and patent. R hand# 20 is clean, intact and SL. Kept Pt clean, dry and comfortable. All needs met and attended. Safety precautions is maintained. Bed at low position, brakes locked, side rails upx2 and call light is within reach. Will endorse to morning nurse for SUMIT.
[2019-11-04 06:44] LABS: BASOPHILS # (AUTO) 0.2 /CMM (0.0-0.2); BASOPHILS % (AUTO) 1.3 % (0.0-2.0); EOSINOPHILS % (AUTO) 6.2 % (0.0-6.0); HEMATOCRIT 43 % (39-51); HEMOGLOBIN 14.2 g/dL (13.5-17.5); LYMPHOCYTES % (AUTO) 16.3 % (20.0-44.0); MEAN CORPUSCULAR HGB CONC 33 g/dl (31.0-36.0); MEAN CORPUSCULAR VOLUME 93 fL (80-96); MONOCYTES # (AUTO) 1.1 /CMM (0.1-1.30); MONOCYTES % (AUTO) 9.2 % (2.0-12.0); NEUTROPHILS # (AUTO) 8.3 /CMM (1.8-8.9); PLATELET COUNT (AUTO) 433 /CMM (150-450); RED BLOOD CELL COUNT(AUTO) 4.65 MIL/uL (4.5-6.0); WHITE BLOOD COUNT (AUTO) 12.4 K/uL (4.3-11.0)
[2019-11-04 07:00] VITALS: BP 111/70
[2019-11-04] MEDS: IPRATROPIUM NEB FS 0.5 MG/2.5 ML AMPUL.NEB NEB SCH ×2 (08:14→15:28)
[2019-11-04] MEDS: ALBUTEROL FS 2.5 MG/3 ML VIAL.NEB NEB SCH ×2 (08:14→15:28)
[2019-11-04] MEDS: CHLORHEXIDINE GLUCONATE 15 ML UDC MM SCH ×2 (08:21→16:56)
[2019-11-04] MEDS: PANTOPRAZOLE 40 MG TABLET.DR PO SCH (08:22)
[2019-11-04] MEDS: ENOXAPARIN SODIUM 40 MG/0.4 ML DISP.SYRIN SQ SCH (08:25)
[2019-11-04] MEDS ORDERED: VANCOMYCIN 1.25 GM in IV D5W 250 ML IV SCH (11:00)
[2019-11-04] MEDS: ACETAMINOPHEN ES 500 MG TABLET PO PRN (13:50)
[2019-11-04] MEDS: SOD FERRIC GLUC 125 MG in IV NS 0.9% 100 ML IV SCH (14:30)
[2019-11-04 16:00] VITALS: BP 123/81
--- NOTE | 2019-11-04 19:05 | NUR ---
MS RN NOTES PATIENT RESTING COMFORTABLY IN BED. PATIENT FOR DISCHARGE BACK TO [place]. DISCHARGE PACKET GIVEN TO PATIENT. DISCHARGE INSTRUCTIONS EXPLAINED THROUGH WRITTEN COMMUNICATION. DENIES ANY C/O PAIN NOR DISCOMFORT AT THIS TIME. LEFT FA #22 SL INTACT AND PATENT. IV ACCESS KEPT IN PLACE DUE TO IV ATB THERAPY OF [facility] PER HOME HEALTH NURSE REQUEST. PATIENT AMBULATING IN ROOM AND UNIT WITH FWW WITH STEADY GAIT DURING THE SHIFT. AL BELONGINGS ACCOUNTED FOR. IN NO APPARENT DISTRESS.
--- NOTE | 2019-11-04 20:14 | NUR ---
MS RN NOTE PATIENT PICKED UP BY AMBULANCE ACCOMPANIED BY 2 EMT AND LEFT VIA GURNEY IN STABLE CONDITION.
[2019-11-04] MEDS ORDERED: ALBUMIN 25% 25 GM in PREMIX 1 EA IV SCH (22:00)
[2019-11-05] MEDS ORDERED: LEVOFLOXACIN 500 MG /D5W 100ML 500 MG in PREMIX 1 EA IV SCH (03:00)
== END 2019-11-04 20:15 | DRG 383 ==
LOC: ER 15:48 → MEDSG2 20:06
PROVIDERS: ADMIT Family Medicine; ATTEND Family Medicine
PROC: 0S9C3ZZ Drainage of Right Knee Joint, Percutaneous Approach (ICD-10-PCS; principal; 2019-11-01)
DX: L03.115 Cellulitis of right lower limb (principal); N17.0 Acute kidney failure with tubular necrosis; J44.9 Chronic obstructive pulmonary disease, unspecified; R13.10 Dysphagia, unspecified; E83.52 Hypercalcemia; F06.8 Other specified mental disorders due to known physiological condition; B35.1 Tinea unguium; S50.11XA Contusion of right forearm, initial encounter; E66.9 Obesity, unspecified; E78.5 Hyperlipidemia, unspecified; E87.6 Hypokalemia; I10 Essential (primary) hypertension; J30.2 Other seasonal allergic rhinitis; R47.02 Dysphasia; N40.0 Benign prostatic hyperplasia without lower urinary tract symptoms; R26.9 Unspecified abnormalities of gait and mobility; J06.9 Acute upper respiratory infection, unspecified; M12.861 Other specific arthropathies, not elsewhere classified, right knee; H91.90 Unspecified hearing loss, unspecified ear; S83.511A Sprain of anterior cruciate ligament of right knee, initial encounter; X58.XXXA Exposure to other specified factors, initial encounter; Y92.89 Other specified places as the place of occurrence of the external cause; Z68.31 Body mass index [BMI] 31.0-31.9, adult
CPT/HCPCS: 36415; 70220-TC; 70450-TC; 71045-TC; 73564-TC; 73721-TC; 80048-TC; 80053-TC; 80076-TC; 80202-TC; 81000-TC; 82550-TC; 82570-TC; 82785; 83540-TC; 83605-TC; 83735-TC; 83970; 84100-TC; 84155; 84155-TC; 84165; 84300-TC; 84443-TC; 84550-TC; 85025-TC; 85652-TC; 85730-TC; 86140-TC; 87040-TC; 87070-TC; 87075-TC; 87081-TC; 89051-TC; 89060-TC; 92611-TC; 93970-TC; 94799-TC; 97116-TC; 97530-TC; A4216; G0378; J1650; J1956; J2543; J2916; J3370; J3475; J3490; J7030; J7042; J7050; J7060; P9047; U0003-CS

== ENCOUNTER 2020-03-31 15:06 | Emergency (ER) | payer MEDICARE, OTHER ==
[~2020-03-31] VITALS: Ht 177.8 cm; Wt 98.0 kg
--- NOTE | 2020-03-31 15:11 | NUR ---
KURT FROM [facility]. TO ER BED 7. AAOX4. NOT IN RESP DISTRESS. AMBULATORY. PT IS DEAF, COMMUNICATES BY WRITTING. CAME IN FOR RIGHT FOOT PAIN AND A LUMP ON THE LEFT WRIST. PT IS NOTED WITH REDNESS AND SWELLING ON THE R FOOT 1ST METATARSAL. PAIN IS RATED 6/10 AND REPORTS THAT IT HAS BEEN GOING ON FOR AWHILE. PT ALSO REPORTS THAT HE HIT HIS HAND ON THE TABLE WHILE HE WAS HITTING. MD WAS AT THE BEDSIDE FOR EVAL. ORDERS RECEIVED NOTED AND CARRIED OUT.
[2020-03-31] MEDS ORDERED: HYDROCODONE/APAP 5/325MG TABLET ONE (15:43)
[2020-03-31] MEDS ORDERED: predniSONE 20 MG TABLET ONE (15:43)
[2020-03-31] MEDS: HYDROCODONE/APAP 5/325MG TABLET PO ONE (15:45)
[2020-03-31] MEDS: predniSONE 20 MG TABLET PO ONE (15:45)
[2020-03-31] MEDS ORDERED: COLCHICINE 0.6 MG TABLET ONE (17:20)
[2020-03-31] MEDS: COLCHICINE 0.6 MG TABLET PO ONE (17:23)
[2020-03-31 17:30] VITALS: BP 149/91
--- NOTE | 2020-03-31 17:45 | NUR ---
CALLED [facility] WHERE PT IS STAYING. SPOKE WITH CHRISTINE PARKINSON. THEY WILL SEND A LYFT FOR THE PT TO GET BACK TO THE FACILITY.
--- NOTE | 2020-03-31 18:01 | NUR ---
PT PICKED UP BY [facility]ENT BY [facility].
== END 2020-03-31 17:31 | disposition home or self-care (01) ==
LOC: ER 15:15
DX: M10.071 Idiopathic gout, right ankle and foot (principal); M25.532 Pain in left wrist
CPT/HCPCS: 36415; 73110; 73630; 84550; 99284; J7512